=== PATIENT | female | born 1970 | race Two or more races ===

== ENCOUNTER 2024-07-27 09:10 | Emergency (ER) | payer OTHER ==
[~2024-07-27] VITALS: Ht 157.5 cm; Wt 70.8 kg
[2024-07-27] MEDS ORDERED: COZAAR100 MG PO (09:43)
[2024-07-27] MEDS ORDERED: 0.9 % SODIUM CHLORIDE 1,000 ML IV STA (09:46)
[2024-07-27 10:18] LABS: HEMATOCRIT 47.2 % (36.0-45.00); HEMOGLOBIN 16.1 g/dL (12.0-15.00); MEAN CELL VOLUME 90.3 fL (80.00-100.00); MEAN CORPUSCULAR HEMOGLOBIN 30.8 pg (27.00-32.0); MEAN CORPUSCULAR HGB CONC 34.1 g/dl (32.0-36.0); PLATELET COUNT 145 K/uL (150-450); RED BLOOD COUNT 5.22 M/uL (4.00-6.00); RED CELL DISTRIBUTION WIDTH 14.1 % (11.5-14.5)
[2024-07-27 11:16] LABS: CALCIUM 8.9 mg/dL (8.5-10.1); CREATININE SERUM 2.58 mg/dL (0.55-1.02); GFR 19.35; POTASSIUM 3.75 mEq/L (3.5-5.1)
[2024-07-27] MEDS ORDERED: METRONIDAZOLE/SODIUM CHLORIDE 500 MG/100 ML PIGGYBACK IV ONE (14:45)
[2024-07-27] MEDS ORDERED: CIPROFLOXACIN IN 5 % DEXTROSE 400 MG/200 ML PIGGYBAG IV ONE (14:45)
== END 2024-07-27 18:47 | disposition home or self-care (01) ==
LOC: ER 09:10
PROVIDERS: Emergency Medicine
DX: K52.9 Noninfective gastroenteritis and colitis, unspecified (principal); Z20.822 Contact with and (suspected) exposure to COVID-19; I10 Essential (primary) hypertension; Z88.0 Allergy status to penicillin

== ENCOUNTER 2024-08-06 08:26 | Inpatient (IN) | payer OTHER ==
[~2024-08-06] VITALS: Ht 157.5 cm; Wt 68.5 kg
[~2024-08-06 08:26] MED LIST: COZAAR100 MG PO
[2024-08-06] MEDS ORDERED: ACETAMINOPHEN 325 MG TABLET PO ONE (08:45)
[2024-08-06] MEDS ORDERED: BENZONATATE 100 MG CAPSULE PO ONE (08:45)
[2024-08-06] MEDS ORDERED: IPRATROPIUM BROMIDE 0.5 MG/2.5 ML AMPUL.NEB IH ONE (08:45)
[2024-08-06] MEDS ORDERED: METHYLPREDNISOLONE SOD SUCC 40 MG VIAL IM ONE (08:45)
[2024-08-06] MEDS ORDERED: LEVALBUTEROL HCL 1.25 MG/3 ML SOLUTION IH ONE (08:45)
--- NOTE | 2024-08-06 08:49 | NUR ---
PACIENTE ALERTA Y ORIENTADA X3. REFIERE COMENZAR CON MALESTAR GENERAL, FIEBRE Y TOS DESDE HACE UNOS NIX QUE NO MEJORA. REFIERE PERDIDA DE APETITO. SE ALICIA TEMP 102.0, SE ADMINISTRAN TYLENOL 1000MG Y BOLSA DE HIELO. SE IRVING S/V Y SE UBICA.
--- NOTE | 2024-08-06 09:07 | NUR ---
RN PLATA EDUCA PACIENTE SOBRE EL [place] MEDICO Y ESTA REFIERE ENTENDER. EL MISMO ALICIA MUESTRAS DE LABORATORIOS Y ADMINITRA MEDICAMENTOS [place] ORDEN MEDICA. PENDIENTE A PLACA. TERAPIAS NOT. A MS. [place]
[2024-08-06 09:34] LABS: HEMATOCRIT 37.8 % (36.0-45.00); MEAN CELL VOLUME 87.9 fL (80.00-100.00); MEAN CORPUSCULAR HEMOGLOBIN 30.2 pg (27.00-32.0); MEAN CORPUSCULAR HGB CONC 34.3 g/dl (32.0-36.0); PLATELET COUNT 362 K/uL (150-450); RED BLOOD COUNT 4.31 M/uL (4.00-6.00); RED CELL DISTRIBUTION WIDTH 14.2 % (11.5-14.5)
[2024-08-06] MEDS ORDERED: levoFLOXacin IN DEXTROSE 5 % 5 MG/ML PIGGYBAG IV SCH ×2 (10:17→17:13)
[2024-08-06] MEDS ORDERED: FAMOtidine 10 MG/ML (4ML VIAL) IV ONE (10:30)
[2024-08-06] MEDS ORDERED: 0.9 % SODIUM CHLORIDE 1,000 ML IV ONE (10:30)
[2024-08-06] MEDS ORDERED: ACETAMINOPHEN 325 MG TABLET PO PRN ×2 (11:00→17:15)
[2024-08-06 11:34] LABS: INR 1.21; PARTIAL THROMBOPLASTIN TIME 29.5 SECONDS (22.0-34.0)
[2024-08-06 11:37] LABS: ALBUMIN 2.3 gm/dL (3.4-5.0); BILIRUBIN TOTAL 0.85 mg/dL (0.3-1.2); CALCIUM 9.2 mg/dL (8.5-10.1); CREATININE SERUM 1.63 mg/dL (0.55-1.02); GFR 32.88; GLOBULINA 6.1 G/DL (2.4-3.5); POTASSIUM 3.24 mEq/L (3.5-5.1); TOTAL PROTEIN 8.4 gm/dL (6.4-8.2)
[2024-08-06] MEDS ORDERED: LEVALBUTEROL HCL 0.63 MG/3 ML SOLUTION IH SCH (17:00)
[2024-08-06] MEDS ORDERED: IPRATROPIUM BROMIDE 0.5 MG/2.5 ML AMPUL.NEB IH SCH (17:00)
[2024-08-06] MEDS ORDERED: LOSARTAN POTASSIUM 100 MG TABLET PO SCH (17:25)
[2024-08-06] MEDS ORDERED: 0.9 % SODIUM CHLORIDE 1,000 ML IV SCH (17:30)
[2024-08-06] MEDS ORDERED: INSULIN LISPRO 1,000 UNIT/10 ML UNITS SUBCUTANEO PRN (17:45)
[2024-08-06] MEDS ORDERED: DEXTROSE 50 % IN WATER 0.5 G/ML DISP.SYRIN IV PRN (17:45)
[2024-08-06] MEDS ORDERED: POTASSIUM CHLORIDE IN WATER 100 ML IV ONE (18:15)
[2024-08-06 22:06] VITALS: BP 123/84
[2024-08-07 01:56] VITALS: BP 142/84; O2SAT 97
[2024-08-07 06:20] LABS: URINE APPEARANCE Clear; URINE BILIRRUBIN Negative (NEGATIVE); URINE BLOOD Small; URINE COLOR Yellow; URINE KETONE Negative (NEGATIVE); URINE LEUKOCYTE Negative; URINE NITRATE Negative; URINE PROTEIN 30 (NEGATIVE); URINE UROBILINOGEN 0.2 E.U./dl
[2024-08-07 06:23] LABS: URINE BACTERIA 266.7 uL (0.0-1933); URINE CAST 5.44 uL (0.0-1.40); URINE EPITHELIAL CELLS 29.9 uL (0.0-38.8); URINE RBC 12.8 uL (0.0-20.8); URINE WBC 17.8 uL (0.0-23.2)
[2024-08-07 06:25] LABS: URINE GLUCOSE >=1000 MG/DL (NEGATIVE)
[2024-08-07 08:39] VITALS: BP 143/86; O2SAT 96
== END 2024-08-07 07:30 | disposition left against medical advice (07) | DRG 194 ==
LOC: ER 08:26 → MEDI 17:28
PROVIDERS: General Practice; ADMIT Internal Medicine; ATTEND Internal Medicine
PROC: 3E0F7GC Introduction of Other Therapeutic Substance into Respiratory Tract, Via Natural or Artificial Opening (ICD-10-PCS; principal; 2024-08-06)
PROC: BB24ZZZ Computerized Tomography (CT Scan) of Bilateral Lungs (ICD-10-PCS; 2024-08-06)
DX: J18.8 Other pneumonia, unspecified organism (principal); N17.9 Acute kidney failure, unspecified; E87.6 Hypokalemia; D72.828 Other elevated white blood cell count; J00 Acute nasopharyngitis [common cold]; Z20.822 Contact with and (suspected) exposure to COVID-19; Z53.29 Procedure and treatment not carried out because of patient's decision for other reasons